=== PATIENT | male | born 1960 | race Caucasian/White ===

== ENCOUNTER 2025-03-20 12:27 | Emergency (ER) | payer MEDICARE, MEDICAID ==
[~2025-03-20] VITALS: Ht 180.3 cm; Wt 83.2 kg
[2025-03-20 12:32] VITALS: BP 120/81
[2025-03-20] MEDS ORDERED: ketorolac trometh 15mg/ml vial 15 MG/ML ML IM ONE (13:25)
[2025-03-20] MEDS: ketorolac trometh 30MG/ML vial 30 MG/ML VIAL IM ONE (13:36)
--- NOTE | 2025-03-20 13:45 | Physician Documentation ---
History of Present Illness ~ Chief Complaint: Mechanical Fall Stated Complaint: HIP PAIN Time Seen by MD: 13:17 OK to notify your PCP?: Yes Source: patient Mode of Arrival: POV Exam Limitations: no limitations HPI This is a 64-year-old male who comes in complaining of left hip pain. The patient states that he was walking on some uneven gravel and slipped and tweaked his left hip a couple of days ago. He says initially the pain was not that significant however it has gotten worse over the past couple of days. He says he has a hard time abducting his leg. He was able to walk though it does cause some pain. He says he hurt the same hip several years ago and from time to time it will cause him some discomfort. He denies pain that radiates down the leg. He denies saddle paresthesias, urinary retention loss of bowel control. He was not complaining of low back pain. Medication Reconciliation Allergies: Coded Allergies: No Known Allergies (Unverified , 03/20/25) Physical Exam Vital Signs: Temperature: 97.8, Heart Rate: 69, Respiratory Rate: 16, BP: 120/81, Pulse Oximetry: 95, Weight: 83.200 Pulse Oximetry Reflects: adequate oxygenation General Appearance: alert, WD/WN, no apparent distress Extremities To inspection of the left hip no obvious deformity. There was no external rotation and shortening or internal rotation and lengthening. There is tenderness to palpation over the posterior and lateral hip/greater trochanter. There is pain with internal and external rotation of the hip. There is decreased range of motion with the abducting the hip. No instability of the hip joint. The pelvic girdle is stable. Progress Results/Orders Reviewed/noted all lab results: Yes Results/Orders Orders - KEVIN NIXON Hip Unilateral 2 Views (03/20/25 13:22) Completed Orders - KEVIN NIXON Ketorolac Trometh 15mg/Ml Vial (Toradol (03/20/25 13:25) Ketorolac Trometh 30mg/Ml Vial (Toradol (03/20/25 13:25) Hip Unilateral 2 Views (03/20/25 13:22) Medications Received in ER Medications (Trade) Dose Ordered Sig/Delia Route PRN Reason Start Time Stop Time Status Last Admin Dose Admin (Toradol inj. 30mg/ml) 30 mg ONCE ONCE IM 03/20/25 13:25 03/20/25 13:26 DC 03/20/25 13:36 30 MG Vital Signs 03/20/25 03/20/25 12:32 13:36 Temp 97.8 Pulse 69 Resp 15 16 B/P (MAP) 120/81 Pulse Ox 95 Medical Decision Making Findings X-ray of the left hip showed moderate amount of osteoarthritis. I gave the patient Toradol 15 mg IM after which he states he feels much better. I will send him home with a prescription for ibuprofen and instructions to apply warm compresses to the area. The patient has a relationship with an orthopedic surgeon Dr. Terrell who did a shoulder surgery on him in the past. I told her to follow up with him. Return for any worsening or concerning symptoms. Additional Comment Left hip sprain strain. Low clinical suspicion for let hip fracture. Labral tear of the left hip. Departure Disposition: HOME / SELF CARE / HOMELESS Impression: Primary Impression: Osteoarthritis of left hip Condition: Stable Discharge Instructions: Hip Pain, Osteoarthritis Additional Instructions: The x-ray today showed a moderate amount of osteoarthritis in the left hip. Take the ibuprofen for pain and inflammation and apply warm compresses to the area. Follow up with Dr. Terrell your orthopedic surgeon. Return to the ER for any worsening or concerning symptoms. Referrals: NO PRIMARY CARE PROVIDER (PCP) MARGY TERRELL MD Prescriptions Ibuprofen (Ibu) 600 Mg Tablet 1 TAB PO Q6H for Joint pain for 7 Days, #28 TAB 0 Refills Prov: KEVIN NIXON 03/20/25 Signature Scribe Signature: No scribe Attestation: The note accurately reflects work and decisions made by me.Kevin ASCENCIO 03/20/25 13:58 KEVIN NIXON March 20, 2025 13:45
--- NOTE | 2025-03-20 13:53 | RADIOLOGY REPORT ---
CLINICAL INDICATION: Left hip pain/injury TECHNIQUE: 1 radiographic views of the pelvis and 2 views of the left hip were obtained. Comparison: None FINDINGS/IMPRESSION: There is no evidence of acute fracture or dislocation. Mild osteoarthrosis of the left femoroacetabular joint.
[2025-03-20] MEDS ORDERED: IBUP-862 PO (13:57)
[2025-03-20 14:36] VITALS: PULSE 69; RESP 16; TEMP 97.8; O2SAT 99
== END 2025-03-20 14:38 | disposition home or self-care (01) ==
LOC: ER 12:28
DX: M16.12 Unilateral primary osteoarthritis, left hip (principal)
CPT/HCPCS: 73502; 96372; 99284; J1885

== ENCOUNTER 2025-05-10 08:53 | Emergency (ER) | payer MEDICARE, MEDICAID ==
[~2025-05-10] VITALS: Ht 180.3 cm; Wt 100.0 kg
[~2025-05-10 08:53] MED LIST: IBUP-862 PO
--- NOTE | 2025-05-10 09:18 | Physician Documentation ---
History of Present Illness ~ Chief Complaint: Shortness of Breath Stated Complaint: COLD SYMPTOMS Time Seen by MD: 09:09 Source: patient Mode of Arrival: POV Exam Limitations: no limitations HPI 64-year-old male with complaints of prolonged cough. Patient states that he had a cough for approximately a month but it seemed to get better having also complaints of shortness of breath he is uncertain if the shortness of breath that is causing him to cough for the cough as coughing shortness of breath. Patient states it is worse at night. Patient denies smoking. Patient endorses wheezing at night. Patient denies any other symptoms of upper respiratory infection or chest pain. Medication Reconciliation Allergies: Coded Allergies: No Known Allergies (Unverified , 03/20/25) Scheduled Ibuprofen (Ibu), 1 TAB PO Q6H Past Medical History Past Medical History: No Pertinent History Review of Systems All Other Systems at this time: Reviewed and Negative Respiratory: Reports: see HPI Physical Exam Vital Signs: RN Vital Signs have been reviewed: Yes, Temperature: 98.5, Source: Temporal, Heart Rate: 71, Respiratory Rate: 16, BP: 132/90, Pulse Oximetry: 99, Weight: 100.000 Oxygen Flow Rate: 0 General Appearance: alert, WD/WN, no apparent distress Neck: normal inspection; No: tender Respiratory: lungs clear, normal breath sounds, no respiratory distress Chest: no accessory muscle use, chest non-tender Cardiovascular: normal peripheral pulses, regular rate, rhythm, no edema, no JVD Progress Results/Orders Results/Orders Orders - TIFFANIE STIRNGER HELP DESK AGENT Chest,Single View (05/10/25 09:09) Completed Orders - TIFFANIE STRINGER HELP DESK AGENT Chest,Single View (05/10/25 09:09) Vital Signs 05/10/25 05/10/25 09:07 09:51 Temp 98.5 Pulse 71 Resp 16 16 B/P (MAP) 132/90 Pulse Ox 99 O2 Flow Rate 0 EKG/XRAY/CT/US/VASC/MRI Chest X-Ray : Additional Comments CHEST RADIOGRAPH Indication: sob Technique: Single frontal view of the chest was obtained COMPARISON: None FINDINGS: Lines and Tubes: None Lungs: Clear Pleura: No effusion. No pneumothorax. Cardiomediastinal contours: Unremarkable Bones: Unremarkable IMPRESSION: No acute disease. Medical Decision Making Findings In her full sentences walking without shortness of breath with exertion. Vital signs reassuring and lung sounds clear. 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 X-ray looked good. Discussed emphysema, chronic bronchitis which he states that he was told he had/COPD nonsmoker. Due to the subjective fever last night will prescribe an antibiotic as well as an inhaler for wheezing that he states he has not night as well as cough. Differential Dx:Considerations: Include: anxiety, asthma, bronchitis, CHF, COPD, pneumonia, sinusitis, upper resp. infection Departure Time of Disposition: 10:16 Disposition: 01 HOME / SELF CARE / HOMELESS Impression: Primary Impression: Bronchitis Additional Impression: Chronic obstructive pulmonary disease Condition: Stable Discharge Instructions: Bronchitis Additional Instructions: Medication as prescribed, monitor for any new or worsening symptoms, and feel free to return to the ER Referrals: NO PRIMARY CARE PROVIDER (PCP) Prescriptions Azithromycin (Zithromax) 250 Mg Tablet 1 TAB PO UD for 5 Days, #6 TAB 2 the first day followed by 1 for days 2-5 Prov: TIFFANIE STRINGER NP 05/10/25 Benzonatate* (Benzonatate*) 100 Mg Capsule 1-2 CAP PO Q4H for cough for 5 Days, #60 CAP Prov: TIFFANIE STRINGER NP 05/10/25 albuterol inhaler (Pro-Air Inhaler) 8.5 Gm Inhaler 2 PUFFS INH Q4HPRN PRN for wheezing for 30 Days, #18 GM Prov: TIFFANIE STRINGER NP 05/10/25 Education Educated: Patient Educated regarding: diagnosis, treatment, need for follow up Signature Scribe Signature: No scribe Attestation: The note accurately reflects work and decisions made by me.Tiffanie JUNIOR 05/10/25 09:18 TIFFANIE STRINGER NP May 10, 2025 09:18
--- NOTE | 2025-05-10 09:35 | RADIOLOGY REPORT ---
CHEST RADIOGRAPH Indication: sob Technique: Single frontal view of the chest was obtained COMPARISON: None FINDINGS: Lines and Tubes: None Lungs: Clear Pleura: No effusion. No pneumothorax. Cardiomediastinal contours: Unremarkable Bones: Unremarkable IMPRESSION: No acute disease.
[2025-05-10] MEDS ORDERED: AZIT250T2 PO (10:17)
[2025-05-10] MEDS ORDERED: BENZ-38 PO (10:17)
[2025-05-10] MEDS ORDERED: ALBU8HFA INH (10:17)
[2025-05-10 10:26] VITALS: BP 123/85; PULSE 67; RESP 16; TEMP 98.5; O2SAT 96
== END 2025-05-10 10:28 | disposition home or self-care (01) ==
LOC: ER 08:53
DX: J40 Bronchitis, not specified as acute or chronic (principal); J44.9 Chronic obstructive pulmonary disease, unspecified; Z79.899 Other long term (current) drug therapy
CPT/HCPCS: 71045; 99283

== ENCOUNTER 2025-06-12 07:58 | Emergency (ER) | payer MEDICARE, OTHER ==
[~2025-06-12] VITALS: Ht 180.3 cm; Wt 101.1 kg
--- NOTE | 2025-06-12 08:16 | Physician Documentation ---
History of Present Illness ~ Chief Complaint: Finger pain Stated Complaint: FINGER PAIN Time Seen by MD: 08:10 HPI And the patient is a 64-year-old male that presents to the emergency department for evaluation of a left ring finger injury. He reports in his fingers hurt for several days and that the pain has come and gone intermittently. Tetanus within 5 years: No Medication Reconciliation Allergies: Coded Allergies: No Known Allergies (Unverified , 06/12/25) Scheduled Cephalexin*Monohydrate* (Keflex*), 1 CAP PO QID Ibuprofen (Ibu), 1 TAB PO Q6H Discontinued Medications albuterol inhaler (Pro-Air Inhaler), 2 PUFFS INH Q4HPRN PRN for wheezing Discontinued Reason: Auto Discontinued Past Medical History Past Medical History: No Pertinent History Review of Systems ROS As stated above in the HPI, otherwise all systems are reviewed and negative. Physical Exam Vital Signs: Temperature: 98.1, Heart Rate: 68, Respiratory Rate: 14, BP: 145/87, Pulse Oximetry: 97, Weight: 101.100 Oxygen Flow Rate: 0 Physical Exam VITALS: Reviewed and as above. GENERAL: Alert, no apparent distress. HEENT: Normocephalic, atraumatic, PERRL, EOMI, dry mucosa, no erythema RESPIRATORY: Lungs clear, normal breath sounds, no respiratory distress. CHEST: No accessory muscle use, no retractions CV: Regular rate, rhythm, no edema, no murmur, No: JVD GI: Soft, non-tender, bowels sounds present, no rebound, guarding, or rigidity BACK: No CVA tenderness, or swelling MUSCULOSKELETAL No deformities, no edema, swelling to left ring finger SKIN: Warm and dry, no rash NEURO: Oriented x4, No motor or sensory deficit PSYCH: Normal mood and affect, no agitation Progress Results/Orders Results/Orders Orders - TARSHA QUICK LACING PRESSER Splint Request (06/12/25 ) Vital Signs 06/12/25 06/12/25 06/12/25 08:04 08:32 08:45 Temp 98.1 98.1 Pulse 68 72 Resp 14 16 B/P (MAP) 145/87 128/89 (102) Pulse Ox 97 97 O2 Flow Rate 0 0 Medical Decision Making Findings Patient presents with left ringer finger joint pain. Given history, exam and workup patient likely has arthritis. I have low suspicion for fracture, d islocation based on imaging results, also low suspicion for significant ligamentous injury, septic arthritis, gout flare, new autoimmune arthropathy, or gonococcal arthropathy. Departure Disposition: HOME / SELF CARE / HOMELESS Impression: Primary Impression: Fracture of metacarpal bone Condition: Stable Discharge Instructions: Fracture, Finger Additional Instructions: To you were seen for evaluation of a left ring finger chronic fracture and swelling. Please follow-up with your primary care provider for additional evaluation at approximately 5 days. Ice your finger in a splint and I have asked that you keep it as immobile as possible and take Tylenol ibuprofen as needed for pain. Was prescribed a course of antibiotics due to the abrasions across the top of the finger and increased swelling over the last couple of days. Take the course of antibiotics as prescribed and in its entirety. 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 Please return to the emergency department if you have any worsening of symptoms or any additional concerning symptoms. With your primary care provider soon as possible. Referrals: NO PRIMARY CARE PROVIDER (PCP) Prescriptions Cephalexin*Monohydrate* (Keflex*) 500 Mg Capsule 1 CAP PO QID for 5 Days, #28 CAP Prov: TARSHA QUICK 06/12/25 Education Educated: Patient Educated regarding: diagnosis, treatment, need for follow up Signature Scribe Signature: Scribed for Tarsha Quick by VERNON Pulido . 06/12/25 09:25 Attestation: Scribed for Tarsha Quickp by VERNON Pulido . 06/12/25 09:25 TARSHA QUICK Jun 12, 2025 08:16
[2025-06-12 08:45] VITALS: TEMP 98.1
--- NOTE | 2025-06-12 08:57 | RADIOLOGY REPORT ---
EXAM: DI HAND, COMPLETE (3VW MIN) CLINICAL INDICATION: HAND PAIN,left TECHNIQUE: DI HAND, COMPLETE (3VW MIN) Comparison: None FINDINGS/IMPRESSION: Chronic appearing nondisplaced fracture involving the 4th middle phalanx. Moderate DIP osteoarthrit is.
[2025-06-12] MEDS ORDERED: CEPH-585 PO (09:21)
[2025-06-12 09:48] VITALS: BP 146/88; PULSE 64; RESP 16; O2SAT 98
== END 2025-06-12 09:54 | disposition home or self-care (01) ==
LOC: ER 07:59
DX: S62.655A Nondisplaced fracture of middle phalanx of left ring finger, initial encounter for closed fracture (principal); W23.0XXA Caught, crushed, jammed, or pinched between moving objects, initial encounter; Y93.89 Activity, other specified; Y92.89 Other specified places as the place of occurrence of the external cause; Y99.8 Other external cause status
CPT/HCPCS: 29130; 73130; 99283

== ENCOUNTER 2025-07-19 10:50 | Emergency (ER) | payer MEDICARE, OTHER ==
[~2025-07-19] VITALS: Ht 180.3 cm; Wt 101.4 kg
[2025-07-19 11:11] VITALS: BP 126/83; PULSE 70; RESP 14; O2SAT 96
--- NOTE | 2025-07-19 13:53 | Physician Documentation ---
History of Present Illness ~ Chief Complaint: Ear Pain Stated Complaint: EAR PAIN Time Seen by MD: 13:22 OK to notify your PCP?: Yes Source: patient Mode of Arrival: POV Exam Limitations: no limitations HPI 64 y/o male with left ear pain x 1week. Patient is not sure if a thorn got into his ear when he was cleaning out a black buckley gross at his mom's house about a week prior to this. Pain is worse with any pressure to ear. No changes in hearing. No trauma to ear. No pre-arrival treatment. No fever, chills, sinus pain, ear pain, headache, neck pain. Medication Reconciliation Allergies: Coded Allergies: No Known Allergies (Unverified , 07/19/25) Scheduled Ibuprofen (Ibu), 1 TAB PO Q6H Past Medical History Past Medical History: No Pertinent History Review of Systems All Other Systems at this time: Reviewed and Negative Physical Exam Vital Signs: RN Vital Signs have been reviewed: Yes, Temperature: 97.9, Source: Oral, Heart Rate: 70, Respiratory Rate: 14, BP: 126/83, Pulse Oximetry: 96, Weight: 101.400 Oxygen Flow Rate: 0 Physical Exam General Appearance: Alert, WD/WN. NAD. HEENT: NCAT, PERRL, EOMI. Erythema and edema at the left tragus that spreads into the lower aspect of the ear canal I am still able to visualize the TM and landmarks which are intact and normal. The tragus and lower aspect of the ear canal where the erythema and edema are are tender to palpation, no pustule, no drainage. no swelling or erythema that extends into the face for neck. Neck: Supple, trachea midline. No cervical lad. Cardiovascular: RRR. No m/r/g. Lungs: CTAB. Breathing unlabored Extremities: Normal inspection. No edema. Skin: Warm/dry, normal color Neurological: Alert and oriented x4, normal gait. Psychiatric: Affect congruent with mood. Progress Results/Orders Results/Orders Vital Signs 07/19/25 11:11 Temp 97.9 Pulse 70 Resp 14 B/P (MAP) 126/83 Pulse Ox 96 O2 Flow Rate 0 Medical Decision Making Ear Diff. Dx: Considerations: Include: Abrasion, Cerumen impaction, Foreign body, Otitis externa, Barotrauma, Otitis media, Perforation, Referred pain- dental, Referred pain-pharyngitis, Referred pain-sinusitis, Referred pain-TMJ syn., Tympanic Membrane Injury Departure Time of Disposition: 13:53 Disposition: 01 HOME / SELF CARE / HOMELESS Impression: Primary Impression: Abscess of tragus of left ear Additional Impression: Ear pain, left Condition: Stable Discharge Instructions: Earache, Adult Additional Instructions: ANTIBIOTIC SENT TO PHARMACY WARM COMPRESSES TO AREA IF FEVER, INCREASING SWELLING OR PAIN RETURN TO ER Referrals: NO PRIMARY CARE PROVIDER (PCP) Prescriptions Sulfamethoxazole/Trimethoprim (Bactrim Ds Tablet) 800 Mg-160 Mg Tablet 1 TAB PO Q12H for 10 Days, #20 TAB Prov: PADMINI ALLISON 07/19/25 Education Educated: Patient Educated regarding: diagnosis, treatment, need for follow up Signature Scribe Signature: X Attestation: PADMINI NIELSON Jul 19, 2025 13:52
[2025-07-19] MEDS ORDERED: SULF1TAB49 PO (13:58)
[2025-07-19 14:19] VITALS: TEMP 97.9
== END 2025-07-19 14:20 | disposition home or self-care (01) ==
LOC: ER 10:50
DX: H66.42 Suppurative otitis media, unspecified, left ear (principal)
CPT/HCPCS: 99283